=== PATIENT | male | born 1980 | race Caucasian/White ===

== ENCOUNTER 2022-04-15 08:25 | Emergency (ER) | payer OTHER, SELFPAY ==
--- NOTE | ~2022-04-15 | XR_ITS ---
EXAMINATION: XR chest 2V 04/15/2022 08:43 INDICATION: Centralized chest pain and heaviness. PROCEDURE: 2 view chest COMPARISON: No prior studies for comparison. FINDINGS: The lungs are clear. The cardiomediastinal silhouette is within normal limits. There are no pleural effusions. There is no pneumothorax suspected. IMPRESSION: 1: NO ACUTE CARDIOPULMONARY DISEASE. Reviewed, dictated and finalized at location A.
[2022-04-15 08:29] VITALS: BP 162/105; PULSE 75; RESP 20; TEMP 36.6; O2SAT 100
[2022-04-15 08:32] VITALS: PULSE 85
--- NOTE | 2022-04-15 08:33 | ECG_ITS ---
Measurements Intervals [place] Rate: 77 P: 32 DE: 165 QRS: 32 QRSD: 100 T: 51 QT: 375 QTc: 425 Interpretive Statements SINUS RHYTHM BORDERLINE T WAVE ABNORMALITY- INFERIOR LEADS BASELINE ARTIFACT- I, II ,AVR, AVL BORDERLINE ECG Electronically Signed On 04-15-2022 8:45:35 CDT by Felix Avina D.O.
[2022-04-15 08:41] LABS: Basophils Absolute Auto 0.1 K/mm3 (0.0-0.1); Basophils Percent Auto 0.7 % (0.2-1.2); Eosinophils Absolute Auto 0.1 K/mm3 (0-0.3); Eosinophils Percent Auto 1.2 % (0-4.4); Hematocrit 44.7 % (42.0-52.0); Hemoglobin 14.7 g/dL (14.0-18.0); Immature Granulocyte Absolute 0.01 K/mm3 (0.00-0.031); Immature Granulocyte Percent A 0.1 % (0-0.5); Lymphocytes Absolute Auto 2.53 K/mm3 (0.9-3.2); Lymphocytes Percent Auto 33.2 % (18.3-44.2); Mean Corpuscular HGB Conc 32.9 g/dl (32-36); Mean Corpuscular Hemoglobin 26.3 pg (26-34); Mean Corpuscular Volume 80.1 fl (80-100); Mean Platelet Volume 9.7 fl (7.4-10.4); Monocytes Absolute Auto 0.5 K/mm3 (0.1-0.6); Monocytes Percent Auto 6.8 % (2.6-8.5); Neutrophils Absolute Auto 4.4 K/mm3 (1.3-6.7); Platelet Count Result 324 k/mm3 (150-375); Red Blood Count 5.58 M/mm3 (4.6-6.20); Red Cell Distribution Width 13.3 % (11.5-14.5); White Blood Count 7.6 K/mm3 (4.5-10.0)
[2022-04-15] MEDS: ASPIRIN 81 MG CHEWABLE TABLET 324 MG PO (08:49)
[2022-04-15 08:53] LABS: Alanine Aminotransferase 23 U/L (6-50); Albumin Level 4.8 g/dL (3.5-5.1); Alkaline Phosphatase 66 U/L (38-126); Anion Gap 10 mmol/L (8-16); Aspartate Amino Transferase 24 U/L (17-59); Bilirubin,Total 0.4 mg/dL (0.2-1.3); Blood Urea Nitrogen 12 mg/dL (9-20); Calcium 9.3 mg/dL (8.4-10.2); Carbon Dioxide 24 mmol/L (22-30); Chloride 106 mmol/L (98-107); Estimated CRCL calculation 117 ml/min; Estimated Glomerular Filt Rate > 60; Glucose 119 mg/dL (65-110); Lipase 95 U/L (23-300); Potassium 3.8 mmol/L (3.4-5.0); Sodium 140 mmol/L (137-145)
[2022-04-15 08:58] VITALS: BP 151/91; PULSE 66; RESP 13; O2SAT 98
[2022-04-15 09:01] LABS: Partial Thromboplastin Time 26.7 SECONDS (22.3-36.8); Prothrombin Time 12.4 Seconds (11.1-14.7)
[2022-04-15 09:04] LABS: Troponin I < 0.012 ng/mL (0.000-0.034)
--- NOTE | 2022-04-15 09:08 | ED.CHESTPAIN ---
HPI - Chest Pain General Chief Complaint: Chest Pain Stated Complaint: chest pain Time Seen by Provider: 04/15/22 08:28 History of Present Illness HPI narrative: 41-year-old male with history of anxiety presents with symptoms that are similar to his panic attacks, he states that he has had a lot going on over the past month, is slightly tearful during this time, states that he has a feeling of headache, chest tightness with some difficulty breathing and feeling nausea, the chest discomfort seems to be coming up to his throat. He does not smoke, no family history of early onset cardiac disease. Related Data Allergies Allergy/AdvReac Type Severity Reaction Status Date / Time Sulfa (Sulfonamide AdvReac Rash Verified 04/15/22 08:32 Antibiotics) Review of Systems Review of Systems: CONST: No fever. HEENT: Feeling of tightness in the throat C/V: Chest pain RESP: Difficulty breathing GI: Mild nausea : No dysuria. M/S: No joint pain. SKIN: No rash. NEURO: Mild headache PSYCH: Anxiety [facility] Past Medical History Medical History (Updated 04/15/22 @ 09:12 by Steph Maurer MD) Anxiety Social History Social History (Updated 04/15/22 @ 09:12 by Steph Maurer MD) Smoking status: Never smoker Exam Narrative: EXAMINATION OF ORGAN SYSTEMS/BODY AREAS: Constitutional: Vital signs per nursing GENERAL: Appears quite anxious and slightly tearful HEAD: Normal with no signs of head trauma. EYES: EOMI, conjunctiva normal ENT: Hearing grossly intact LUNGS: Nonlabored breathing. HEART: [Regular rate and rhythm] ABD: [Soft], [nontender to palpation] EXT: Normal range of motion SKIN: [No rashes or lesions.] NEURO: [Alert and oriented x 3. No gross focal sensory or strength deficits.] PSYCH: Anxious affect, but denies any suicidal ideations Course Vital Signs Vital signs: Vital Signs Temperature 97.9 F 04/15/22 08:29 Pulse Rate 75 04/15/22 08:29 Respiratory Rate 20 04/15/22 08:29 Blood Pressure 162/105 H 04/15/22 08:29 Pulse Oximetry 100 04/15/22 08:29 Oxygen Delivery Room Air 04/15/22 08:29 Temperature 97.9 F 04/15/22 08:29 Pulse Rate 66 04/15/22 08:58 Respiratory Rate 13 04/15/22 08:58 Blood Pressure 151/91 H 04/15/22 08:58 Pulse Oximetry 98 04/15/22 08:58 Oxygen Delivery Room Air 04/15/22 08:29 MDM - Chest Pain MDM Narrative Medical decision making narrative: ED COURSE AND MEDICAL DECISION MAKIN-year-old male presenting with chest pain. EKG done in triage negative for acute ischemic changes. Cardiac workup is initiated. EKG: Performed in triage and interpreted by me. Normal sinus rhythm. Rate [75]. Normal axis. [place] normal. QRS duration normal. QTc normal. No pathologic Q waves. No ST segment elevation or depression to suggest acute ischemia. No RV strain pattern. HEART score is 0 with no acute ischemic changes on EKG and negative troponin making ACS unlikely. [place] low risk with negative PERC making PE unlikely. Presentation not consistent with dissection or aneurysm without radiation of pain or pulse deficits. CXR negative for mediastinal widening. No abdominal pain or signs of sepsis that would be concerning for esophageal perforation or mediastinitis. No cardiomegaly or JVD to suggest pericardial effusion/tamponade. HEART Score: [0]. (Risk of major adverse cardiac events over 6 weeks: Score of 0-3 is low risk <2% ; Score of 4-6 is moderate risk ~12-15%; Score of 7-12 is high risk ~50%). - History - [0]. (Not suspicious 0; moderately suspicious 1; highly suspicious 2). - EKG - [0]. (No ST changes 0; non-specific ST/T changes 1; ST depression 2). - Age - [0]. (<45 = 0; 46-65 = 1; >65 = 2). - Risk factors - [0]. (0 factors = 0; 1-2 factors = 1; >2 factors = 2). - Troponin - [0]. (Normal = 0; Indeterminate = 1; High = 2). On repeat evaluation just prior to discharge, the patient is no acute distress. I had a long discussion with the patient and with shared decision ma
[2022-04-15 09:29] VITALS: BP 146/98; PULSE 67; RESP 15; O2SAT 97
== END 2022-04-15 09:30 | disposition home or self-care (01) ==
PROVIDERS: Emergency Provider Emergency Medicine
DX: R07.89 Other chest pain (principal); F41.9 Anxiety disorder, unspecified; F43.0 Acute stress reaction
CPT/HCPCS: 36415; 71046; 80053; 83690; 84484; 85025; 85610; 85730; 93005; 99284; A9270

== ENCOUNTER 2023-06-10 07:36 | Outpatient (CLI) | payer OTHER, SELFPAY ==
[2023-06-10 12:27] LABS: Basophils Percent Auto 0.6 % (0.2-1.2); Eosinophils Absolute Auto 0.1 K/mm3 (0-0.3); Hematocrit 47.1 % (42.0-52.0); Hemoglobin 15.4 g/dL (14.0-18.0); Immature Granulocyte Absolute 0.01 K/mm3 (0.00-0.031); Immature Granulocyte Percent A 0.2 % (0-0.5); Lymphocytes Absolute Auto 2.78 K/mm3 (0.9-3.2); Lymphocytes Percent Auto 43.2 % (18.3-44.2); Mean Corpuscular HGB Conc 32.7 g/dl (32-36); Mean Corpuscular Volume 85.6 fl (80-100); Mean Platelet Volume 10.1 fl (7.4-10.4); Monocytes Absolute Auto 0.4 K/mm3 (0.1-0.6); Monocytes Percent Auto 6.8 % (2.6-8.5); Neutrophils Percent Auto 47.2 % (45.5-73.1); Platelet Count Result 311 k/mm3 (150-375); Red Cell Distribution Width 12.4 % (11.5-14.5); White Blood Count 6.4 K/mm3 (4.5-10.0)
[2023-06-10 12:33] LABS: Alanine Aminotransferase 35 U/L (6-50); Albumin Level 4.9 g/dL (3.5-5.1); Alkaline Phosphatase 50 U/L (38-126); Anion Gap 10 mmol/L (8-16); Aspartate Amino Transferase 54 U/L (17-59); Bilirubin,Total 0.7 mg/dL (0.2-1.3); Blood Urea Nitrogen 16 mg/dL (9-20); Calcium 9.6 mg/dL (8.4-10.2); Carbon Dioxide 26 mmol/L (22-30); Chloride 104 mmol/L (98-107); Cholesterol 209 mg/dL (0-200); Estimated Glomerular Filt Rate > 60; Glucose 129 mg/dL (65-110); HDL Direct 39 mg/dL; Potassium 4.3 mmol/L (3.4-5.0); Sodium 140 mmol/L (137-145); Triglycerides 169 mg/dL (<150)
[2023-06-10 12:37] LABS: Hemoglobin A1C 6.2 % (<5.7)
[2023-06-10 12:44] LABS: LDL Cholesterol Direct 128 mg/dL
== END 2023-06-10 07:37 | disposition home or self-care (01) ==
LOC: ANHWCLAB 07:38
PROVIDERS: PCP Nurse Practitioner Family; Visit Provider Nurse Practitioner Family
DX: Z00.00 Encounter for general adult medical examination without abnormal findings (principal); R73.01 Impaired fasting glucose; F41.9 Anxiety disorder, unspecified; E78.2 Mixed hyperlipidemia
CPT/HCPCS: 36415; 80053; 80061; 83036; 84443; 85025